=== PATIENT | male | born 1990 | race Caucasian/White ===

== ENCOUNTER 2024-09-12 13:40 | Emergency (ER) | payer SELFPAY ==
[2024-09-12 13:44] VITALS: BP 145/98
[2024-09-12 14:17] LABS: % Basophils 0.5 % (0-2); % Eosinophils 1.8 % (0-6); % Immature Granulocytes 0.5 % (0-0.5); % Lymphocytes 25.5 % (20.5-51.1); % Monocytes 8.9 % (1.7-9.3); % Neutrophils 62.8 % (42.2-75.2); Absolute Eosinophils 0.1 10^3/uL (0-0.7); Absolute Monocytes 0.7 10^3/uL (0.1-0.6); Absolute Neutrophils 4.9 10^3/uL (1.4-6.5); Hematocrit 49.8 % (39.0-52.0); Mean Corp Hgb Conc. 34.1 g/dL (33.0-37.0); Mean Corpuscular Hgb 32.3 pg (27.0-31.0); Mean Corpuscular Volume 94.5 fL (80.0-94.0); Mean Platelet Volume 9.7 fL (7.4-10.4); Nucleated Red Blood Cells % 0 % (-); Platelet Count 238 10^3/uL (130-400); Red Blood Cell Count 5.27 10^6/uL (4.70-6.10); Red Cell Dist. Width 12.7 % (11.5-14.5); White Blood Cell Count 7.9 10^3/uL (4.8-10.8)
[2024-09-12 14:22] LABS: INR 0.98; PT 13.3 Sec (11.4-14.6)
[2024-09-12 14:25] LABS: ALT (SGPT) 41 U/L (0-50); AST (SGOT) 35 U/L (17-59); Albumin 5.1 g/dl (3.5-5.0); Alkaline Phosphatase 57 U/L (38-126); Blood Urea Nitrogen 9 mg/dl (9-20); Calcium 9.7 mg/dl (8.4-10.2); Carbon Dioxide 35 mmol/L (22-30); Chloride 97 mmol/L (98-107); Glucose 80 mg/dl (70-99); Potassium 4.4 mmol/L (3.5-5.1); Sodium 142 mmol/L (135-145); Total Bilirubin 0.5 mg/dl (0.2-1.3); Total Protein 8.1 g/dl (6.3-8.2); eGFR > 60.00
--- NOTE | 2024-09-12 15:24 | ED.GENMED ---
History of Present Illness
<Radha Dietrich PA-C - Last Filed: 09/12/24 20:50>
General
Chief Complaint: Rectal Bleeding
Source: patient
Exam Limitations: none
Time Seen by Provider: 09/12/24 14:53
History of Present Illness
History of Present Illness:
Patient is a 34-year-old male presenting to the emergency department for evaluation of rectal bleeding. Patient states that he has noticed bright red blood in his stools for the past year. However�he states it is becoming more frequent. Patient
states that he notices bright red blood in both the toilet bowl and sometimes streaks in the stool. He denies any rectal pain or itching. Patient denies any black stool. No hematuria, hemoptysis, or hematemesis. Patient denies any associated
abdominal pain, anorexia. No fevers or chills.
This is the first time the patient is seeking care for this. Patient has never had a colonoscopy. Patient is not on any blood thinners.
Past History
<Radha Dietrich PA-C - Last Filed: 09/12/24 20:50>
Past History
ED Past Medical History: None
ED Past Surgical History: None
Social History
Tobacco: Smoker
Alcohol: Occasional
Personal: Single
Living: with family
Review of Systems
<Radha Dietrich PA-C - Last Filed: 09/12/24 20:50>
Review of Systems
Allergies reviewed?: Yes
All Other Systems: ROS reviewed and negative except as documented in HPI and ROS
Phy Exam
<Radha Dietrich PA-C - Last Filed: 09/12/24 20:50>
Physical Exam
Physical Exam:
Vitals: Hypertensive, otherwise vital signs are stable on arrival. Afebrile
General: Patient is well appearing, no acute distress
Skin: Warm and dry, no rashes or lesions
Head: Normocephalic, atraumatic
Eyes: Sclera nonicteric. EOMs intact. No nystagmus.
Throat: Protecting airway
Neck: Normal ROM, no cervical spine tenderness, no meningismus
Cardiac: Regular rate and rhythm, no murmurs.
Pulm: Normal respiratory effort, no wheezes, rales, rhonchi heard on exam.
Abdomen: Abdomen soft. No abdominal tenderness.
Rectal: No stool in vault. No evidence of bleeding on exam. No visualized external hemorrhoids
Extremities: No evidence of cyanosis or edema
Neuro: AAOx3. Grossly intact.
Psychiatric: Normal affect.
Course
<Radha Dietrich PA-C - Last Filed: 09/12/24 20:50>
Orders/Labs/Results
Orders:
Orders
09/12/24 13:54
Complete Blood Count/With Diff Urgent
Comprehensive Metabolic Panel Urgent
Prothrombin Time Urgent
09/12/24 13:55
Type+Screen Urgent
09/12/24 14:35
ABO2 Routine
BBK Wristband Number:
Associate notified that ABO2 has been ordered: [id number]
Date: 09/12/24
Time: 14:11
Plant Assigner ID: [id number]
Abnormal Lab Results
09/12/24
13:54
MCV 94.5 H fL
(80.0-94.0)
MCH 32.3 H pg
(27.0-31.0)
Absolute Monos (auto) 0.7 H 10^3/uL
(0.1-0.6)
Chloride 97 L mmol/L
(98-107)
Carbon Dioxide 35 H mmol/L
(22-30)
Albumin 5.1 H g/dl
(3.5-5.0)
09/12/24 13:54
09/12/24 13:54
Vital Signs
Initial and Last Documented VS:
Initial Vital Signs
Temp Pulse Resp BP Pulse Ox
98.1 F 98 18 145/98 100
09/12/24 13:44 09/12/24 13:44 09/12/24 13:44 09/12/24 13:44 09/12/24 13:44
Last Documented Vital Signs
Temp Pulse Resp BP Pulse Ox
98.1 F 76 17 128/88 97
09/12/24 13:44 09/12/24 15:29 09/12/24 15:29 09/12/24 15:29 09/12/24 15:29
Maur[place]olt;Liu Mejia, DO - Last Filed: 09/12/24 15:36>
Orders/Labs/Results
Orders:
Orders
09/12/24 13:54
Complete Blood Count/With Diff Urgent
Comprehensive Metabolic Panel Urgent
Prothrombin Time Urgent
09/12/24 13:55
Type+Screen Urgent
09/12/24 14:35
ABO2 Routine
BBK Wristband Number:
Associate notified that ABO2 has been ordered: [id number]
Date: 09/12/24
Time: 14:11
Plant Assigner ID: [id number]
Abnormal Lab Results
09/12/24
13:54
MCV 94.5 H fL
(80.0-94.0)
MCH 32.3 H pg
(27.0-31.0)
Absolute Monos (auto) 0.7 H 10^3/uL
(0.1-0.6)
Chloride 97 L mmol/L
(98-107)
Carbon Dioxide 35 H mmol/L
(22-30)
Albumin 5.1 H g/dl
(3.5-5.0)
09/12/24 13:54
09/12/24 13:54
Vital Signs
Initial and Last Documented VS:
Initial Vital Signs
Temp Pulse Resp BP Pulse Ox
98.1 F 98 18 145/98 100
09/12/24 13:44 09/12/24 13:44 09/12/24 13:44 09/12/24 13:44 09/12/24 13:44
Last Documented Vital Signs
Temp Pulse Resp BP Pulse Ox
98.1 F 76 17 128/88 97
09/12/24 13:44 09/12/24 15:29 09/12/24 15:29 09/12/24 15:29 09/12/24 15:29
<Radha Dietrich PA-C - Last Filed: 09/12/24 20:50>
MDM/Problems Addressed
Differential Diagnosis Includes:
Not limited to: Internal hemorrhoids, diverticular bleeding, external hemorrhoids, anal fissure, malignancy, etc.
MDM/Problems Addressed:
34-year-old male presenting with history of rectal bleeding for the past year. No abdominal pain or fevers. No lightheadedness or shortness of breath. Patient not on any blood thinners. Patient hypertensive on arrival although improved by my
assessment. Patient is afebrile. Physical exam as above. Patient well-appearing, in no apparent distress. Abdomen soft and nontender. Rectal exam without stool in vault and no bleeding. No hemorrhoids seen on exam. Labs ordered in triage with
stable hemoglobin of 17. No other clinically significant abnormalities.
Ultimately�no evidence of active rectal bleeding on exam. Suspect likely internal hemorrhoids vs diverticular bleeding. Hemoglobin stable. Patient stable for discharge with GI follow-up. Return precautions discussed at length. Patient seen with
attending physician.
Chronic conditions affecting care:
N/A
Acute Exacerbation and/or Progression of Chronic Illness:
N/A
<Radha Dietrich PA-C - Last Filed: 09/12/24 20:50>
*Pulse Oximetry
Patient hypoxic: no
*EKG
Interpreted by ED Provider?: NA
*Crime Prevention Police Officer Interpretation
Rate: Crime Prevention Police Officer- N/A
*Critical Care Note
Total Time (30-74mins, 75-104mins- exclusive of procedures): Not Applicable
ED Attending Note
<Radha Dietrich PA-C - Last Filed: 09/12/24 20:50>
-
Portions of this chart may have been created with voice recognition software.� Occasional wrong word or��sound alike� substitutions may have occurred due to the inherent limitations of voice recognition software.
<Liu Mejia DO - Last Filed: 09/12/24 15:36>
ED Attending Note
Patient seen and examined by attending physician: Yes
I performed a history and physical exam of patient and discussed management with resident, I reviewed resident's note and agree with documented findings and plan of care.: Yes
ED Attending Note:
I reviewed and agree with history of plan by Radha Dietrich. My exam revealed 34-year-old male no acute distress. Abdomen exam benign, nontender. Rectal exam revealed no blood in stool. No hemorrhoids seen. Hemoglobin 17. Stable for discharge
and follow-up with gastroenterology.
Discharge Plan
Departure
Patient Disposition: Home (Routine Discharge)
Date of Disposition: 09/12/24
Time of Disposition: 15:25
Patient with high blood pressure during this ER visit?: Yes
Condition: Good
Covid-19: Not Applicable
Discharge Problem:
History of rectal bleeding
Instructions: Bloody Stools, Adult ED, BLOOD PRESSURE
Prescriptions:
No Action
calcium carbonate [Tums] 200 mg calcium (500 mg) Tablet,Chewable
200 mg PO BIDPRN PRN (Reason: gerd)
Referrals:
Cornelius Rodríguez DO [Family Provider] - Follow up in 5-7 days
Woods,Lisbet Gaby, DO [Active] - Next open appointment
Activity Restrictions/Additional Instructions:
RETURN TO THE EMERGENCY DEPARTMENT WITH HIGH FEVERS, SEVERE ABDOMINAL PAIN, SIGNIFICANT RECTAL BLEEDING, LIGHTHEADEDNESS/DIZZINESS, SHORTNESS OF BREATH, WORSENING IN CURRENT SYMPTOMS, OR ANY OTHER CONCERNS
-As discussed there is no evidence of rectal bleeding on your exam today. Your hemoglobin is normal.
-It is very important you follow closely with your primary care provider for further evaluation/management. You will also need to follow-up with GI, a contact information has been provided for you above. You will likely require further
imaging/scopes.
Monitor your symptoms closely and return to the emergency department with any acute worsening/new symptoms or any other concerns
Interventions
Interventions:
*Risk Screen - Suicide Last Done: 09/12/24 13:44
*General Assessment Last Done: 09/12/24 13:44
*Neglect/Abuse Screening Last Done: 09/12/24 13:44
*ED COVID-19 Vaccine History Last Done: 09/12/24 14:00
*Nursing Disposition Last Done: 09/12/24 16:00
ZL-Wrzorb-Ictyxrsarc Assessment Last Done: 09/12/24 14:00
ED- Cardiac Assessment Last Done: 09/12/24 14:00
ED- Pulmonary Assessment Last Done: 09/12/24 14:00
Discharge Date and Time
Discharge Date/Time: 09/12/24 16:17
Print Language: MALIAN
[2024-09-12 15:29] VITALS: BP 128/88
== END 2024-09-12 16:17 | disposition home or self-care (01) ==
LOC: EMR 13:40
PROVIDERS: Emergency Medicine; EMERGENCY PHYSICIAN Emergency Medicine; FAMILY PHYSICIAN Family Medicine
DX: K92.1 Melena (principal); R03.0 Elevated blood-pressure reading, without diagnosis of hypertension; F17.200 Nicotine dependence, unspecified, uncomplicated
CPT/HCPCS: 99283; 80053; 85025; 85610; 86850; 86900; 86901